=== PATIENT | female | born 1955 | race Caucasian/White ===

== ENCOUNTER → 2020-03-16 | Outpatient (CLI) | payer OTHER | LOC: SJCVC 13:01 | PROVIDERS: ATTEND Internal Medicine | DX: Z01.818 Encounter for other preprocedural examination (principal); R94.31 Abnormal electrocardiogram [ECG] [EKG]; E78.00 Pure hypercholesterolemia, unspecified; M19.90 Unspecified osteoarthritis, unspecified site; Z79.899 Other long term (current) drug therapy; Z87.891 Personal history of nicotine dependence ==

== ENCOUNTER → 2020-04-02 | Outpatient (CLI) | payer OTHER | LOC: SJCVCIMAG 08:05 | PROVIDERS: ATTEND Internal Medicine | DX: Z01.810 Encounter for preprocedural cardiovascular examination (principal); I08.3 Combined rheumatic disorders of mitral, aortic and tricuspid valves; R00.1 Bradycardia, unspecified; R06.00 Dyspnea, unspecified; E78.5 Hyperlipidemia, unspecified; I10 Essential (primary) hypertension; Z87.891 Personal history of nicotine dependence ==

== ENCOUNTER → 2020-05-27 | Outpatient (CLI) | payer OTHER ==
[~2020-05-27] MED LIST: CRESTOR10 MG PO; GLUCOPHAGE500 MG PO; PRESERVISION A1 EAC2 PO; ZYRTEC10 M5 PO
== END ==
LOC: LAB 08:00
PROVIDERS: ATTEND Student in an Organized Health Care Education/Training Program
DX: Z01.812 Encounter for preprocedural laboratory examination (principal); Z20.828 Contact with and (suspected) exposure to other viral communicable diseases

== ENCOUNTER 2020-06-01 07:29 | Inpatient (IN) | payer OTHER ==
[2020-05-27 10:40] LABS: HEMATOCRIT 41.4 % (37.0-47.0); MCH 30.5 pg (26.0-34.0); MCHC 33.7 g/dL (28.0-37.0); MCV 90.7 fL (80.0-100.0); RBC 4.57 mil/uL (4.20-5.00); RDW 12.5 % (10.5-14.5); WBC 7.9 thou/uL (4.0-11.0)
[2020-05-27 10:42] LABS: URINE BILIRUBIN NEGATIVE (Negative); URINE BLOOD NEGATIVE (Negative); URINE CLARITY CLEAR; URINE COLOR YELLOW; URINE GLUCOSE-RANDOM* NEGATIVE (Negative); URINE KETONES NEGATIVE (Negative); URINE NITRITE-REFLEX NEGATIVE (Negative); URINE PROTEIN (DIPSTICK) NEGATIVE (Negative); URINE UROBILINOGEN 0.2 E.U./dl (0.2-1.0)
[2020-05-27 10:44] LABS: URINE LEUKOCYTES-REFLEX 1+ (Negative)
[2020-05-27 10:49] LABS: ALBUMIN 3.9 g/dL (3.4-5.0); CALCIUM 9.4 mg/dL (8.5-10.1); POTASSIUM 4.1 mmol/L (3.5-5.1)
[2020-05-27 10:55] LABS: INR 1.1; PROTIME 11.2 Seconds (9.3-11.4)
[2020-05-27 10:58] LABS: CASTS None Seen /LPF (None Seen); SQUAMOUS 4-10 Moderate /LPF (0-3); URINE WBC-REFLEX 0-5 Rare /HPF (0-5)
[2020-05-27 10:59] LABS: BACTERIA-REFLEX 1-9 Few /HPF (None Seen); CRYSTALS None Seen /LPF (None Seen); URINE RBC None Seen /HPF (0-2)
[2020-05-28 01:06] LABS: GLYCOHEMOGLOBIN (HGB A1C) 6.8 % (4.8-5.6)
[~2020-06-01] VITALS: Ht 154.9 cm; Wt 98.0 kg
[2020-06-01 08:42] VITALS: BP 182/73
[2020-06-01 13:00] VITALS: BP 125/48
[2020-06-01 13:30] VITALS: BP 131/52
[2020-06-01 14:00] VITALS: BP 129/58
--- NOTE | 2020-06-01 15:01 | NUR ---
ASSESSMENT: CM REVIEWED CHART AND SPOKE WITH PATIENT. PT IS S/P L TKR. PT REPORTS THAT SHE LIVES IN A HOUSE WITH HER . PT REPORTS SHE HAS A FEW STEPS TO ENTER BUT CAN ALSO WALK THROUGH HER YARD TO ONLY HAVE ONE STEP TO GET INSIDE. PT STATES ONCE INSIDE SHE HAS ABOUT 6 STEPS WITH HANDRAILS TO THE MAIN LEVEL THAT HER BEDROOM, KITCHEN, AND BATHROOM ARE ON. PT REPORTS SHE HAS A WALKER, CANE, AND CRUTCHES AT HOME. PT REPORTS BEING INDEPENDENT WITH ADLS. PT REPORTS THAT SHE HAS NOT HAD HH IN THE PAST BUT STATES THAT HER PHYSICIAN SENT A REFERRAL TO [facility] SO IF SHE NEEDS IT IS AGREEABLE TO USE THEM. PT/OT IS TO SEE PATIENT AND CM WILL CONTINUE TO FOLLOW TO ASSIST NEEDED.
--- NOTE | 2020-06-01 17:00 | NUR ---
PT ADMITTED TO 453 FROM PACU WITH L KNEE REPLACEMENT. A&OX4. DRSG TO L KNEE C/D/I WITH HEMOVAC IN PLACE, ICE PACK IN PLACE. IV FLUIDS STARTED ORDERED, STARTED IN A CLEAR LIQUID DIET. SCD'S AND JONAH HOSE IN PLACE, CALL LIGHT W/I REACH.
[2020-06-01 20:30] VITALS: BP 139/58
[2020-06-01 20:35] VITALS: BP 139/58
[2020-06-02 05:23] LABS: HEMATOCRIT 29.6 % (37.0-47.0); HEMOGLOBIN 10.1 gm/dL (12.0-15.0); MCH 31.1 pg (26.0-34.0); MCHC 34.3 g/dL (28.0-37.0); MCV 90.7 fL (80.0-100.0); RBC 3.26 mil/uL (4.20-5.00); RDW 12.9 % (10.5-14.5); WBC 12.3 thou/uL (4.0-11.0)
--- NOTE | 2020-06-02 06:15 | NUR ---
Assumed pt care at 1900. A/OX4,VSS.SAMMY/Hemovac in place on left knee. C/o pain with movement.Medicated per EMAR with relief reported. Denies N/V.Fall precautions in place,calls approp for help. IVF infusing via LFA. Will continue to monitor pt.
[2020-06-02 07:51] VITALS: BP 96/43
--- NOTE | 2020-06-02 08:07 | O ---
[facility] [place] [address] OPERATIVE REPORT Name: YOKASTA BERNARD Room #: 443-P ADM IN M.R.#: [id number] Admission: 06/01/20 Attend Phys: Koko Wyman MD Discharge: Date of : 51 Report #: [id number] THIS REPORT FOR: cc: Jessica Kauffman MD, Nora P. MD Clymer, David J. MD ~ CC: Koko Kauffman DATE OF SERVICE: 06/01/2020 PREOPERATIVE DIAGNOSIS: End-stage degenerative arthritis, left knee, with valgus malalignment. POSTOPERATIVE DIAGNOSIS: End-stage degenerative arthritis, left knee, with valgus malalignment. PROCEDURE: Left total knee arthroplasty. SURGEON: Koko Wyman MD INDICATIONS: This heavy, deconditioned, somewhat frail 65-year-old female complains of progressive left knee pain and demonstrates moderate valgus malalignment with slight knee instability. We have elected to go ahead with left total knee arthroplasty. DESCRIPTION OF PROCEDURE: The patient was taken to the operating room where she was placed under general anesthesia. A femoral nerve block was also applied. The left knee and leg were meticulously prepped and draped. A thigh tourniquet was applied and inflated to 300 mmHg. An anterior longitudinal skin incision was made and carried through the medial retinaculum. The patella was reflected laterally. Marked degenerative change in all 3 compartments was noted. The Lund and Nephew knee system was utilized. Intramedullary guides were used on both the femur and the tibia. The femur was cut in 5 degrees of valgus and the tibia cut perpendicular to the long axis of the bone, which corrected nicely the moderate valgus malalignment. The femur was best suited for a size 3 left femoral component. The tibia was also best suited for a size 3 tibial component. Trial reduction was performed and a limited lateral soft tissue release was performed. A size 10 mm polyethylene insert fit nicely and resulted in good correction of the valgus malalignment with satisfactory range of motion and stability. The patellar surface was resected and a 29 mm patellar button fit nicely. Appropriate anchor holes were created and a trial button was placed. The knee was passed through a full range of motion and demonstrated good alignment and satisfactory stability and range of motion. The trial components were then removed. The bony surfaces were thoroughly [address] [address] OPERATIVE REPORT Name: YOKASTA BERNARD Room #: 443-P [facility] IN .R.#: [id number] Admission: 06/01/20 Attend Phys: Koko Wyman MD Discharge: Date of : 51 Report #: [id number] irrigated and dried. The intramedullary canal was blocked with a small bone block on both the femoral and tibial sides. Methyl methacrylate cement was mixed and injected into the porous surface of the tibia. The permanent components were brought up on to the field. The Lund and Nephew size 3 Angela II left tibial baseplate was inserted in appropriate alignment. Excess cement was removed around its margin. A 10 mm Legion high flexion cruciate retaining polyethylene liner was snapped into place. It seated nicely and appeared to be secure. The left cruciate retaining Legion porous femoral component was applied. Some cement was used at the distal aspect as she seems to be moderately osteopenic. This was impacted into position and it seated nicely. Excess cement was removed around its margin. The size 29 Angela II patellar resurfacing component was then positioned using appropriate anchor holes and cement. A patellar clamp was used until the cement had hardened. Once the cement was firm, alignment, range of motion and stability were once again assessed and felt to be satisfactory. A single Hemovac was left in the wound exiting through a separate stab incision. The fascia was closed with multiple #1 Vicryl sutures. The subcutaneous tissues were closed with 0 Monocryl. The skin was closed with skin octavio. A sterile dressing was applied. The patient was awakened and returned to recovery room in good condition. <ELECTRONICALLY SIGNED> By: Koko Wyman MD 06/02/20 0807 1120 1155 Koko Wyman MD /nt
--- NOTE | 2020-06-02 11:29 | NUR ---
DR CARNES HERE TO SEE PATIENT, PT ALERT XS4. SURGICAL DRAIN TAKEN OUT PER ORDERS. FLUIDS DCD. PT HAD AM MEDS AND BLOOD SUGARS MONITERED AND S/S ORDERED. HAS [employer] DRESSING JONAH BLOCK AND ADOLFO SCD'S. PT ASSISTED TO BSC. PT WORKING WITH PT/OT THERAPIES.PT IS PLEASANT AND COOPERATIVE WITH CARE.
[2020-06-02 12:11] VITALS: BP 110/4
--- NOTE | 2020-06-02 15:24 | NUR ---
ON-GOING ASSESSMENT: CM REVIEWED CHART. PER ATTENDING PT MAY DISCHARGE IN THE NEXT 1-2 DAYS. CURRENTLY AWAITING PT/OT EVALS TO ASSIST WITH DISCHARE PLANNING. OT STATING PT CAN LIKELY RETURN HOME BUT AWAITING PT EVAL. [facility] IS FOLLOWING PATIENT. CM WILL CONTINUE TO FOLLOW TO ASSIST NEEDED.
[2020-06-02 16:03] VITALS: BP 139/55
[2020-06-02 19:55] VITALS: BP 151/48
--- NOTE | 2020-06-03 03:10 | NUR ---
PT IS ALERT AND ORIENTED. L KNEE WITH SAMMY DRSG, TEDS AND SCSS IN PLACE. PAIN HAS BEEN IN THE 8-9 RANGE, PERCOCET GIVEN X 2 SO FAR WITH RELIEF. PT REQUIRES ASSIST X1 TO USE THE BSC. SHE IS VOIDING OKAY. AFEBRILE. NO COUGH OR SOA.CALLS APPROPRIATELY. WILL CONTINUE WITH POC TILL EOS.
[2020-06-03 05:40] LABS: HEMATOCRIT 26.9 % (37.0-47.0); HEMOGLOBIN 9.2 gm/dL (12.0-15.0); MCH 31.4 pg (26.0-34.0); MCHC 34.4 g/dL (28.0-37.0); MCV 91.5 fL (80.0-100.0); RBC 2.94 mil/uL (4.20-5.00); RDW 13.4 % (10.5-14.5); WBC 11.2 thou/uL (4.0-11.0)
[2020-06-03 08:00] VITALS: BP 131/50
[2020-06-03] MEDS ORDERED: XARELTO10 MG PO (13:46)
[2020-06-03] MEDS ORDERED: NORCO 10-325 T1 EACH PO (13:46)
--- NOTE | 2020-06-03 14:33 | NUR ---
ON-GOING ASSESSMENT: CM REVIEWED CHART. PT CONTINUES TO WORK WITH THERAPIES. PLAN IS FOR POSSIBLE DISCHARGE HOME TOMORROW. CM WILL CONTINUE TO FOLLOW. [facility] CAN ACCEPT PATIENT FOR HH IF NEEDED AT DISCHARGE. CM NOTIFIED [facility] THAT PT IS NOT DISCHARGE TODAY.
[2020-06-03 16:25] VITALS: BP 128/75
[2020-06-03 16:32] VITALS: BP 128/57
[2020-06-03 19:12] VITALS: BP 108/45
--- NOTE | 2020-06-03 19:14 | NUR ---
PT IS AOX4, VSS, PAIN CONTROLLED WITH ORAL ANALGESIC. PT IS UP WITH STANDBY ASSIST & WALKER. PT CALLS APPROPRIATELY, FALL PRECAUTIONS IN PLACE. WILL CONTINUE TO MONITOR FOR SAFETY.
--- NOTE | 2020-06-04 03:20 | NUR ---
NO NEW CONCERNS. PT ABLE TO TRANSFER WITH SBA X1. PAIN MANAGED WITH ORAL MEDS. DENIES ANY OTHER SYMPTOMS. LAXATIVES GIVEN ( TIMED AND PRN). SO FAR PT IS PASSING FLATUS. LEFT KNEE WITH SAMMY DRSG, LOOKS GOOD. NO OTHER CONCERNS.FALL PREC IN PLACE, CALL LIGHT WITHIN REACH.
[2020-06-04 03:39] VITALS: BP 126/56
[2020-06-04 05:25] LABS: HEMATOCRIT 26.9 % (37.0-47.0); HEMOGLOBIN 9.1 gm/dL (12.0-15.0); MCH 31.2 pg (26.0-34.0); MCHC 33.8 g/dL (28.0-37.0); MCV 92.2 fL (80.0-100.0); RBC 2.92 mil/uL (4.20-5.00); WBC 9.1 thou/uL (4.0-11.0)
[2020-06-04 08:23] VITALS: BP 121/48
--- NOTE | 2020-06-04 12:08 | D ---
[facility] [place] [address] DISCHARGE SUMMARY Name: YOKASTA BERNARD Room #: 443-P ADM IN M.R.#: [id number] Admission: 06/01/20 Attend Phys: Koko Wyman MD Discharge: Date of : 51 Report #: [id number] THIS REPORT FOR: cc: Jessica Kauffman MD, Nora P. MD Clymer, David J. MD ~ THIS REPORT FOR: //name// CC: Koko Kauffman DATE OF SERVICE: 06/04/2020 FINAL DIAGNOSIS: End-stage degenerative arthritis, left knee. OPERATIONS AND PROCEDURES: Left total knee arthroplasty. HISTORY OF PRESENT ILLNESS: This frail, but independent 65-year-old female complains of progressive left knee pain. Clinical exam and x-rays reveal significant degenerative change with moderate valgus malalignment. We have discussed treatment options and elected to go ahead with total knee replacement. HOSPITAL COURSE: The patient was admitted and taken to the operating room on 06/01/2020. She underwent left total knee replacement, which she tolerated nicely. Postoperatively, she made slow progress, given her age and frail state. She was able to advance gradually with physical therapy and now seems safe and functional using a walker with limited assistance. She was able to resume a regular diet and resume her routine medications. DISCHARGE MEDICATIONS: Include Xarelto 10 mg daily, hydrocodone 10 mg one every 6 hours p.r.n. for pain, metformin 500 mg b.i.d., Crestor 10 mg daily, Zyrtec 10 mg daily. She will continue gentle activity for range of motion and strengthening at home doing independent exercise. She will call if there are any problems or questions. I will plan to see her back in my office next week for her first routine followup visit and then the following week for suture removal. <ELECTRONICALLY SIGNED> By: Koko Wyman MD 06/04/20 1208 1136 1156 Koko Wyman MD /nt
[2020-06-04 12:46] VITALS: BP 121/48
--- NOTE | 2020-06-04 15:08 | NUR ---
PT IS AOX4, VSS, PAIN IN BACK CONTROLLED WITH ORAL ANALGESIC. PT UP WITH 1 PERSON ASSISTANCE. PT HAS GOOD APPETITE, NO N/V NOTED. DISCHARGE INSTRUCTIONS RECEIVED AND PT REPORTS UNDERSTANDING. IV D/C'D, PT WENT HOME IN CAR WITH FAMILY MEMBER.
--- NOTE | 2020-06-04 15:24 | NUR ---
ON-GOING ASSESSMENT: CM REVIEWED CHART. ATTENDING DISCHARGED PATIENT HOME WITH NO NEEDS. PT HOWEVER IS REQUESTING HOME HEALTH CARE AND SHE REPORTS ATTENDING ALREADY SENT REFERRAL TO [facility] PRIOR TO ADMISSION AND SHE HAD BEEN SPEAKING WITH THEM. CM SPOKE WITH LIASON FROM [facility] WHO REPORTS THAT THEY HAD BEEN FOLLOWING PATIENT. CM DISCUSSED THAT NO HOME HEALTH ORDERS WERE WRITTEN. CM ATTEMPTED TO CONTACT DY. CARNES AND AWAITING ORDERS AT THIS TIME. [facility] WAS ALSO GOING TO REACH OUT TO HIM.
== END 2020-06-04 14:33 | disposition home or self-care (01) | DRG 470 ==
LOC: 4S 07:29 → TBA 07:29 → PRE 10:01 → 4S 12:29 → PRE 13:23 → 4S 06-04 14:33
PROVIDERS: ADMIT Orthopaedic Surgery; ATTEND Orthopaedic Surgery
PROC: 0SRD0J9 Replacement of Left Knee Joint with Synthetic Substitute, Cemented, Open Approach (ICD-10-PCS; principal; 2020-06-01)
DX: M17.12 Unilateral primary osteoarthritis, left knee (principal); Z68.41 Body mass index [BMI] 40.0-44.9, adult; E78.5 Hyperlipidemia, unspecified; E11.9 Type 2 diabetes mellitus without complications; J44.9 Chronic obstructive pulmonary disease, unspecified; E66.9 Obesity, unspecified; M22.42 Chondromalacia patellae, left knee; Z88.7 Allergy status to serum and vaccine; Z79.899 Other long term (current) drug therapy; Z91.02 Food additives allergy status; Z87.891 Personal history of nicotine dependence
CPT/HCPCS: 10102; 50010; 50101; 50415; 50954; 51130; 51225; 51412; 53364; 56525; 57095; 57103; 57104; 57180; 62110; 62900; 70005

== ENCOUNTER → 2020-06-23 | Outpatient (CLI) | payer OTHER ==
[~2020-06-23] MED LIST changes: +NORCO 10-325 T1 EACH PO; +XARELTO10 MG PO
== END ==
LOC: CAT 10:56
PROVIDERS: ATTEND Family Medicine
DX: Z12.2 Encounter for screening for malignant neoplasm of respiratory organs (principal); I25.10 Atherosclerotic heart disease of native coronary artery without angina pectoris; J84.10 Pulmonary fibrosis, unspecified; D73.89 Other diseases of spleen; R91.8 Other nonspecific abnormal finding of lung field; I70.0 Atherosclerosis of aorta; Z87.891 Personal history of nicotine dependence

== ENCOUNTER → 2020-12-31 | Outpatient (CLI) | payer OTHER, MEDICARE | LOC: CAT 09:57 | PROVIDERS: ATTEND Family Medicine | DX: R91.8 Other nonspecific abnormal finding of lung field (principal); I25.10 Atherosclerotic heart disease of native coronary artery without angina pectoris; J84.10 Pulmonary fibrosis, unspecified; J98.4 Other disorders of lung; M47.814 Spondylosis without myelopathy or radiculopathy, thoracic region; M46.04 Spinal enthesopathy, thoracic region; Z87.891 Personal history of nicotine dependence ==

== ENCOUNTER 2021-09-08 11:07 | Inpatient (IN) | payer OTHER, MEDICARE ==
[~2021-09-08] VITALS: Ht 165.1 cm; Wt 102.6 kg
[2021-09-08 11:17] VITALS: BP 75/44; BP 82/40
[2021-09-08 12:28] LABS: HEMATOCRIT 39.2 % (37.0-47.0); HEMOGLOBIN 12.8 gm/dL (12.0-15.0); MCH 29.5 pg (26.0-34.0); MCHC 32.6 g/dL (28.0-37.0); MCV 90.5 fL (80.0-100.0); PLATELET COUNT 248 thou/uL (150-400); RBC 4.33 mil/uL (4.20-5.00); RDW 13.5 % (10.5-14.5); WBC 28.3 thou/uL (4.0-11.0)
[2021-09-08 12:47] LABS: CALCIUM 8.8 mg/dL (8.5-10.1); CREATININE 2.2 mg/dL (0.6-1.0); POTASSIUM 4.6 mmol/L (3.5-5.1)
[2021-09-08 12:52] LABS: ALBUMIN 2.2 g/dL (3.4-5.0); TOTAL BILIRUBIN 0.6 mg/dL (0.2-1.0); TOTAL PROTEIN 6.3 g/dL (6.4-8.2)
[2021-09-08 14:40] LABS: URINE BILIRUBIN NEGATIVE (Negative); URINE BLOOD NEGATIVE (Negative); URINE CLARITY SL CLOUDY; URINE COLOR YELLOW; URINE GLUCOSE-RANDOM* NEGATIVE (Negative); URINE KETONES TRACE (Negative); URINE LEUKOCYTES-REFLEX TRACE (Negative); URINE NITRITE-REFLEX NEGATIVE (Negative); URINE PROTEIN (DIPSTICK) NEGATIVE (Negative); URINE SPECIFIC GRAVITY 1.025 (1.005-1.035); URINE UROBILINOGEN 0.2 E.U./dl (0.2-1.0)
[2021-09-08 15:36] LABS: ABSOLUTE NEUTROPHILS 26.6 thou/uL (1.4-8.2); PLATELET ESTIMATE NORMAL
[2021-09-08] MEDS ORDERED: LISINOPRIL10 MG PO ×2 (18:29)
[2021-09-08] MEDS ORDERED: FISH OIL 1,0001 EAC9 PO ×2 (18:29)
[2021-09-08] MEDS ORDERED: GLIPIZIDE XL5 MG PO ×2 (18:29)
[2021-09-08] MEDS ORDERED: TRULICITY1.5 MG/0.5 SUBQ ×2 (18:29)
[2021-09-08 22:16] VITALS: BP 109/52
[2021-09-08 22:17] VITALS: BP 139/54
[2021-09-08 23:05] LABS: INR 1.32; PROTIME 14.2 Seconds (10.5-12.1)
[2021-09-09 03:30] VITALS: BP 111/42
[2021-09-09 05:43] LABS: ABSOLUTE NEUTROPHILS 15.2 thou/uL (1.4-8.2); BASOPHILS 0.2 % (0.0-2.0); EOSINOPHILS 4.4 % (0.0-3.0); HEMATOCRIT 32.5 % (37.0-47.0); MCH 29.5 pg (26.0-34.0); MCHC 32.8 g/dL (28.0-37.0); MONOCYTES 5.7 % (1.0-8.0); PLATELET COUNT 207 thou/uL (150-400); POLYS 83.7 % (36.0-66.0); RBC 3.61 mil/uL (4.20-5.00); RDW 13.4 % (10.5-14.5); WBC 18.2 thou/uL (4.0-11.0)
[2021-09-09 05:47] LABS: HEMOGLOBIN 10.6 gm/dL (12.0-15.0)
--- NOTE | 2021-09-09 06:04 | NUR ---
Arrived from ER around 2214. Baseline coags added to labs drawn in ER prior to starting heparin gtt. Heparin bolus administered in ER.No bleeding noted. SB when asleep the SR when awake. Pt. verbalized being short of breath when she first came then it got better except she still does get short of breath with exertion. Maintaining O2 sat in the mid to upper 90's.She has been afebrile. Abdominal folds /pannus cleansed , dried and applied nystatin powder then interdry. Photo taken then placed in chart. Another IV placed on left FA for IV ABT. She slept fair during the night. Voiding per bedpan with periods of incontinence.
[2021-09-09 06:39] LABS: TOTAL PROTEIN 4.9 g/dL (6.4-8.2)
[2021-09-09 06:59] LABS: ALBUMIN 1.8 g/dL (3.4-5.0); CALCIUM 7.9 mg/dL (8.5-10.1); CREATININE 1.7 mg/dL (0.6-1.0); TOTAL BILIRUBIN 0.4 mg/dL (0.2-1.0)
[2021-09-09 07:00] LABS: POTASSIUM 3.6 mmol/L (3.5-5.1)
[2021-09-09 07:10] VITALS: BP 111/54
--- NOTE | 2021-09-09 08:34 | EKG ---
[address] [place] [address] ELECTROCARDIOGRAM REPORT Name: YOKASTA BERNARD Room #: 211-P ADM IN M.R.#: [id number] Admission: 09/08/21 Attend Phys: Michelle Salvador MD Discharge: Date of : 51 Report #: [id number] [facility] ED Test Date: 2021-09-08 Test Time: 11:20:56 Pat Name: YOKASTA BERNARD Department: Room: 211 Gender: F Air Battle Manager: HALI : 1955 Requested By: Kenzie Steel Order Number: [id number] MD: Merlin Bird Measurements Intervals [place] Rate: 66 P: 20 NH: 161 QRS: -26 QRSD: 101 T: 34 QT: 422 QTc: 443 Interpretive Statements Sinus rhythm Multiple ventricular premature complexes Inferior infarct, old Poor R wave progression No previous ECG available for comparison Electronically Signed On 09-09-2021 8:33:55 ASSISTANT AUDITOR by Merlin Bird [email or web address] <ELECTRONICALLY SIGNED> By: Merlin Bird MD, [facility] 09/09/21 0833 1120 1120 Merlin Bird MD, FACC /EPI
[2021-09-09 11:12] VITALS: BP 109/49
[2021-09-09 11:20] VITALS: BP 104/52
--- NOTE | 2021-09-09 11:23 | 2DMMODE ---
[facility] [place] [address] 2 D/M-MODE ECHOCARDIOGRAM Name: YOKASTA BERNARD Room #: 211-P ADM IN M.R.#: [id number] Admission: 09/08/21 Attend Phys: Michelle Salvador MD Discharge: Date of : 51 Report #: [id number] THIS REPORT FOR: cc: Jessica Kauffman MD, Nora P. MD Park, Jin S. MD ~ APPROVED REPORT Study performed: 09/09/2021 09:41:01 EXAM: Comprehensive 2D, Doppler, and color-flow Echocardiogram Patient Location: Bedside Room #: 211 Status: routine BSA: 2.08 HR: 56 bpm BP: 111/54 mmHg Rhythm: Bradycardia Other Information Study Quality: Adequate Indications Diabetes Chest Pain Hypertension/HDD 2D Dimensions RVDd: 33.33 mm IVSd: 9.22 (7-11mm) LVOT Diam: 20.04 (18-24mm) LVDd: 53.22 mm PWd: 8.99 (7-11mm) Ascending Ao: 36.38 (22-36mm) LVDs: 31.03 (25-40mm) Left Atrium: 36.75 (27-40mm) Aortic Root: 29.82 mm IVC: 18.00 mm Volumes Left Atrial Volume (Systole) Single Plane 4CH: 81.36 mL Single Plane 2CH: 66.06 mL LA ESV Index: 41.00 mL/m2 Aortic Valve AoV Peak Danilo.: 3.12 m/s AO Peak Gr.: 38.85 mmHg LVOT Max P.78 mmHg [facility] [address] [place] [address] 2 D/M-MODE ECHOCARDIOGRAM Name: YOKASTA BERNARD Room #: 211-P [facility] IN [facility].#: [id number] Admission: 09/08/21 Attend Phys: Yahaira Ruiz Discharge: Date of : 51 Report #: [id number] Mean Gr.: 21.83 mmHg LVOT Mean P.61 mmHg AO V2 Mean: 2.15 m/s LVOT Max V: 1.36 m/s AO V2 VTI: 75.18 cm LVOT Mean V: 0.86 m/s DARWIN (VTI): 1.17 cm2 LVOT V1 VTI: 27.90 cm DARWIN Vmax: 1.37 cm2 SV (LVOT): 87.91 mL Mitral Valve E/A Ratio: 0.8 MV Decel. Time: 269.58 ms MV E Max Danilo.: 1.00 m/s MV A Danilo.: 1.26 m/s MV PHT: 78.18 ms IVRT: 110.73 ms Pulmonary Valve PV Peak Danilo.: 1.27 m/s PV Peak Gr.: 6.44 mmHg Pulmonary Vein P Vein S: 0.70 m/s P Vein A: 0.34 m/s P Vein D: 0.59 m/s P Vein A Dur.: 106.1 msec P Vein S/D Ratio: 1.19 Tricuspid Valve TR Peak Danilo.: 2.84 m/s TR Peak Gr.: 32.37 mmHg PA Pressure: 37.00 mmHg Left Ventricle The left ventricle is normal size. There is normal LV segmental wall motion. There is normal left ventricular wall thickness. The left ventricular systolic function is normal. The left ventricular ejection fraction is within the normal range. LVEF is 65%. Grade I - abnormal relaxation pattern. Right Ventricle The right ventricle is normal size. The right ventricular systolic function is normal. Atria Left atrium is dilated. Right atrium is at the upper limits of normal. Aortic Valve The aortic valve is normal in structure. Aortic valve is calcified. Trace to mild aortic regurgitation. There [place] [address] 2 D/M-MODE ECHOCARDIOGRAM Name: YOKASTA BERNARD Room #: 211-P [facility] IN [facility]#: [id number] Admission: 09/08/21 Attend Phys: Yahaira Ruiz Discharge: Date of : 51 Report #: [id number] stenosis. Mitral Valve The mitral valve is normal in structure. Mild mitral regurgitation. No evidence of mitral valve stenosis. Tricuspid Valve The tricuspid valve is normal in structure. There is trace to mild tricuspid regurgitation. Estimated PAP 35 mmHg. There is mild pulmonary hypertension. Pulmonic Valve The pulmonary valve is normal in structure. There is no pulmonic valvular regurgitation. Great Vessels The aortic root is normal in size. IVC is normal in size and collapses >50% with inspiration. Pericardium There is no pericardial effusion. <Conclusion> The left ventricle is normal size. There is normal left ventricular wall thickness. The left ventricular systolic function is normal. Grade I - abnormal relaxation pattern. The right ventricle is normal size. Left atrium is dilated. There is mild valvular aortic stenosis. Mild mitral regurgitation. There is trace to mild tricuspid regurgitation. Estimated PAP 35 mmHg. <ELECTRONICALLY SIGNED> By: Zachary Rogel MD 09/09/211121 21 21 Zachary Rogel MD /INF
--- NOTE | 2021-09-09 12:08 | NUR ---
PT RESTING IN BED AT THIS TIME. PT FEELS DROWSY TODAY. PTS BLOOD PRESSURE SLIGHTLY HYPOTENSIVE; INFORMED DR. CLEANING REGARDING PATIENT'S BLOOD PRESSURE; NEW ORDERS RECEIVED AND ADMINISTERED. PT DENIES ANY SOA,CHEST PAIN, DIZZINESS, OR NAUSEA AND VOMITING. D/C HEPARIN GTT PER DR. CLEANING'S ORDERS. PT DENIES ANY NEEDS AT THIS TIME. ASSESSMENTS CHARTED. WILL CONTINUE TO MONITOR. FALL PRECAUTIONS IN PLACE AND CALL LIGHT WITHIN REACH.
[2021-09-09 15:10] VITALS: BP 114/39
--- NOTE | 2021-09-09 16:28 | NUR ---
Met with patient and at bedside. patient transferred to [facility] from [facility]. Patient admits with CP with planned CABG in am. Patient resides with in independent home. All needs on one level. Patient independent with adls officer captain. he was in process of building a deck on home. Patient cont to drive. Discussed dc planning. Discussed with dme coverage. Casemgt following
--- NOTE | 2021-09-09 17:01 | NUR ---
met with patient who admits with fatigue/weakness. Patient resides in independent home with son and dtr-in-law. She reports she has 6 steps with rail to enter then all needs on one level. Patient reports she has a cane but does not use daily. PCP Dr Kauffman. Patient reports if need for home health care she reports no preference for care. She reports feeling better today.
[2021-09-09 20:01] VITALS: BP 133/53
[2021-09-10 04:48] VITALS: BP 106/52
--- NOTE | 2021-09-10 05:41 | NUR ---
PT UP TO BSC WITH SBA, NO C/O PAIN, VSS, IV FLUIDS AND ANTIBX INFUSING IN L ARM IV SITES, REPOSITIONED NEEDED, WILL CON'T TO MONITOR PER PPOC.
[2021-09-10 07:10] VITALS: BP 128/41
[2021-09-10 09:08] LABS: HEMATOCRIT 30.2 % (37.0-47.0); HEMOGLOBIN 9.8 gm/dL (12.0-15.0); MCH 29.8 pg (26.0-34.0); MCHC 32.5 g/dL (28.0-37.0); MCV 91.7 fL (80.0-100.0); RBC 3.29 mil/uL (4.20-5.00); RDW 13.9 % (10.5-14.5); WBC 10.1 thou/uL (4.0-11.0)
[2021-09-10 09:16] LABS: CALCIUM 8.3 mg/dL (8.5-10.1); CREATININE 1.6 mg/dL (0.6-1.0); POTASSIUM 3.9 mmol/L (3.5-5.1)
[2021-09-10 11:20] VITALS: BP 101/41
--- NOTE | 2021-09-10 11:51 | NUR ---
TOOK OVER CARE OF THIS PATIENT AT 0700. PT RESTING IN BED; DENIES ANY NEEDS AT THIS TIME. PT RESTING COMFORTABLY. AMBULATED WITH PHYSICAL THERAPY TODAY. PT DENIES ANY PAIN, SOA, DIZZINESS, NAUSEA OR VOMITING. FALL PRECAUTIONS IN PLACE AND CALL LIGHT WITHIN REACH.
[2021-09-10] MEDS ORDERED: CEFDINIR300 MG PO ×2 (13:57)
[2021-09-10] MEDS ORDERED: DOXYCYCLINE HY100 M4 PO ×2 (13:57)
[2021-09-10] MEDS ORDERED: NYSTATIN 100,0015 G1 TOP ×2 (14:04)
[2021-09-10 15:04] VITALS: BP 101/41
--- NOTE | 2021-09-10 15:04 | NUR ---
PT GOING TO BE DISCHARGING TODAY. PT VERY ANXIOUS ABOUT THE TIME SHE WILL BE DISCHARGED. EDUCATED PT THAT IT DOES TAKE TIME FOR SOCIAL WORK TO COORDINATE HOME HEALTHCARE WELL GETTING DISCHARGE INSTRUCTIONS. PTS SON WILL BE AVAILABLE DURING TEACHING. AGREEABLE TO DISCHARGE PLAN.
[2021-09-10 15:07] VITALS: BP 101/41
--- NOTE | 2021-09-10 16:25 | NUR ---
I have reviewed the documentation by EMELY ASHFORD from 09/10/21 to 09/10/21 and I concur with it. GUSTAVO FLORES
== END 2021-09-10 15:51 | disposition home health service (06) | DRG 871 ==
LOC: ER 11:07 → EROBS 15:17 → 2N 15:17
PROVIDERS: Physician Assistant; ADMIT Hospitalist; ATTEND Hospitalist
DX: A41.9 Sepsis, unspecified organism (principal); E43 Unspecified severe protein-calorie malnutrition; N17.0 Acute kidney failure with tubular necrosis; B37.89 Other sites of candidiasis; L30.8 Other specified dermatitis; Z20.822 Contact with and (suspected) exposure to COVID-19; E11.9 Type 2 diabetes mellitus without complications; J45.909 Unspecified asthma, uncomplicated; E78.5 Hyperlipidemia, unspecified; E66.01 Morbid (severe) obesity due to excess calories; H91.91 Unspecified hearing loss, right ear; R65.20 Severe sepsis without septic shock; M79.3 Panniculitis, unspecified; E78.00 Pure hypercholesterolemia, unspecified; E66.9 Obesity, unspecified; I35.0 Nonrheumatic aortic (valve) stenosis; M17.12 Unilateral primary osteoarthritis, left knee; R53.81 Other malaise; D64.89 Other specified anemias; Z98.42 Cataract extraction status, left eye; Z98.41 Cataract extraction status, right eye; Z68.37 Body mass index [BMI] 37.0-37.9, adult; Z88.8 Allergy status to other drugs, medicaments and biological substances; Z87.891 Personal history of nicotine dependence
CPT/HCPCS: 10081

== ENCOUNTER → 2021-09-27 | Outpatient (CLI) | payer OTHER, MEDICARE ==
[~2021-09-27] MED LIST changes: +CEFDINIR300 MG PO; +DOXYCYCLINE HY100 M4 PO; +FISH OIL 1,0001 EAC9 PO; +GLIPIZIDE XL5 MG PO; +LISINOPRIL10 MG PO; +NYSTATIN 100,0015 G1 TOP; +TRULICITY1.5 MG/0.5 SUBQ
== END ==
LOC: SJCVC 12:45
PROVIDERS: ATTEND Internal Medicine
DX: I10 Essential (primary) hypertension (principal); R06.00 Dyspnea, unspecified; E78.5 Hyperlipidemia, unspecified; M19.90 Unspecified osteoarthritis, unspecified site; R73.9 Hyperglycemia, unspecified; H35.30 Unspecified macular degeneration; Z87.891 Personal history of nicotine dependence; Z79.899 Other long term (current) drug therapy; Z88.8 Allergy status to other drugs, medicaments and biological substances

== ENCOUNTER 2021-10-05 11:00 | Emergency (ER) | payer OTHER, MEDICARE ==
[~2021-10-05] VITALS: Ht 154.9 cm; Wt 92.5 kg
[2021-10-05 13:31] VITALS: BP 150/69
[2021-10-05 15:28] LABS: ABSOLUTE NEUTROPHILS 4.1 thou/uL (1.4-8.2); BASOPHILS 0.9 % (0.0-2.0); EOSINOPHILS 1.4 % (0.0-3.0); HEMATOCRIT 39.1 % (37.0-47.0); HEMOGLOBIN 12.6 gm/dL (12.0-15.0); LYMPHOCYTES 25.8 % (24.0-44.0); MCH 29.9 pg (26.0-34.0); MCHC 32.2 g/dL (28.0-37.0); MCV 92.8 fL (80.0-100.0); MONOCYTES 15.2 % (1.0-8.0); PLATELET COUNT 183 thou/uL (150-400); POLYS 56.7 % (36.0-66.0); RBC 4.21 mil/uL (4.20-5.00); WBC 7.2 thou/uL (4.0-11.0)
[2021-10-05 15:34] LABS: CALCIUM 9.4 mg/dL (8.5-10.1); CREATININE 1.1 mg/dL (0.6-1.0); POTASSIUM 3.8 mmol/L (3.5-5.1)
[2021-10-05 15:40] LABS: ALBUMIN 3.1 g/dL (3.4-5.0); TOTAL BILIRUBIN 0.5 mg/dL (0.2-1.0); TOTAL PROTEIN 7.5 g/dL (6.4-8.2)
[2021-10-05 17:23] LABS: URINE BILIRUBIN NEGATIVE (Negative); URINE BLOOD NEGATIVE (Negative); URINE CLARITY CLEAR; URINE COLOR YELLOW; URINE GLUCOSE-RANDOM* NEGATIVE (Negative); URINE KETONES NEGATIVE (Negative); URINE NITRITE-REFLEX NEGATIVE (Negative); URINE PROTEIN (DIPSTICK) NEGATIVE (Negative); URINE UROBILINOGEN 0.2 E.U./dl (0.2-1.0)
[2021-10-05 17:29] LABS: URINE LEUKOCYTES-REFLEX 1+ (Negative)
[2021-10-05 17:48] LABS: BACTERIA-REFLEX 1-9 Few /HPF (None Seen); CASTS None Seen /LPF (None Seen); CRYSTALS None Seen /LPF (None Seen); SQUAMOUS 4-10 Moderate /LPF (0-3); URINE RBC 1-2 Rare /HPF (NONE SEEN); URINE WBC-REFLEX 6-15 Few /HPF (0-5)
[2021-10-05] MEDS ORDERED: NORCO7.5 PO (18:05)
[2021-10-05] MEDS ORDERED: ZOFRAN ODT4 MG PO (18:11)
[2021-10-05] MEDS ORDERED: VOLTAREN50 MG PO (18:11)
[2021-10-05] MEDS ORDERED: BACTRIM DS TAB1 EACH PO (18:15)
[2021-10-07] MEDS ORDERED: LISINOPRIL10 MG PO (14:59)
[2021-10-07] MEDS ORDERED: VOLTAREN50 MG PO (16:08)
== END 2021-10-05 19:09 | disposition home or self-care (01) ==
LOC: ER 11:00
PROVIDERS: Nurse Practitioner
DX: K80.20 Calculus of gallbladder without cholecystitis without obstruction (principal); N39.0 Urinary tract infection, site not specified; E78.5 Hyperlipidemia, unspecified; J45.909 Unspecified asthma, uncomplicated; E66.01 Morbid (severe) obesity due to excess calories; Z98.51 Tubal ligation status; Z98.890 Other specified postprocedural states; Z79.899 Other long term (current) drug therapy; Z88.7 Allergy status to serum and vaccine; Z91.02 Food additives allergy status

== ENCOUNTER 2021-10-08 09:02 | Day surgery (SDC) | payer OTHER, MEDICARE ==
[~2021-10-08] VITALS: Ht 154.9 cm; Wt 92.1 kg
[~2021-10-08 09:02] MED LIST changes: +BACTRIM DS TAB1 EACH PO; +NORCO7.5 PO; +VOLTAREN50 MG PO; +ZOFRAN ODT4 MG PO
== END 2021-10-08 15:42 | disposition home or self-care (01) ==
LOC: OR 09:02 → TBA 09:09 → OR 13:37
PROVIDERS: ATTEND Surgery
DX: K80.20 Calculus of gallbladder without cholecystitis without obstruction (principal); Z53.8 Procedure and treatment not carried out for other reasons; Z20.822 Contact with and (suspected) exposure to COVID-19; I10 Essential (primary) hypertension; E11.9 Type 2 diabetes mellitus without complications; E78.5 Hyperlipidemia, unspecified; M19.90 Unspecified osteoarthritis, unspecified site; Z98.890 Other specified postprocedural states; Z79.899 Other long term (current) drug therapy; Z87.891 Personal history of nicotine dependence; Z98.51 Tubal ligation status

== ENCOUNTER 2021-10-20 10:53 | Observation (INO) | payer OTHER, MEDICARE ==
[~2021-10-20] VITALS: Ht 154.9 cm; Wt 92.5 kg
[2021-10-20 11:44] LABS: HEMATOCRIT 39.6 % (37.0-47.0); HEMOGLOBIN 12.7 gm/dL (12.0-15.0)
[2021-10-20 12:04] VITALS: BP 118/41
[2021-10-20 19:39] VITALS: BP 115/53
--- NOTE | 2021-10-20 22:17 | NUR ---
PT ADMITTED TO THE UNIT THIS SHIFT. ROOM AIR. VSS. C/O ABDOMINAL PAIN. PRN PAIN MEDICATION GIVEN DIRECTED. ALL SCHEDULED MEDICATIONS GIVEN DIRECTED. FALL PRECUATIONS IN PLACE, CALL LIGHT IS WITHIN REACH. ADMISSION COMPLETED. PT HAS BEEN EDUCATED ON USE OF CALL LIGHT AND BED CONTROLS. PT CALLS OUT APPROPRIATELY FOR ASSISTANCE.
[2021-10-21 05:05] LABS: HEMATOCRIT 35.6 % (37.0-47.0); HEMOGLOBIN 11.6 gm/dL (12.0-15.0); MCH 30.5 pg (26.0-34.0); MCHC 32.7 g/dL (28.0-37.0); MCV 93.3 fL (80.0-100.0); RBC 3.82 mil/uL (4.20-5.00); RDW 13.7 % (10.5-14.5); WBC 7.1 thou/uL (4.0-11.0)
[2021-10-21 05:23] LABS: CALCIUM 8.9 mg/dL (8.5-10.1); CREATININE 1.4 mg/dL (0.6-1.0)
[2021-10-21 05:50] LABS: POTASSIUM 5.9 mmol/L (3.5-5.1)
--- NOTE | 2021-10-21 07:54 | O ---
[facility] [place] [address] OPERATIVE REPORT Name: YOKASTA BERNARD Room #: 436-[facility] M.R.#: [id number] Admission: 10/20/21 Attend Phys: Sherman Bai MD Discharge: Date of : 51 Report #: [id number] THIS REPORT FOR: cc: Jessica Kauffman MD,Jessica Bai,Sherman Romero MD ~ cc: Jessica Kauffman MD DATE OF SERVICE: 10/20/2021 PREOPERATIVE DIAGNOSES: Cholecystitis with cholelithiasis and sludge in the gallbladder. POSTOPERATIVE DIAGNOSES: Cholecystitis with cholelithiasis and sludge in the gallbladder with two stones impacted in the distal cystic duct near the gallbladder cystic duct junction. SURGEON: Sherman Bai MD PROCEDURE PERFORMED: Laparoscopic cholecystectomy with cholangiogram. ESTIMATED BLOOD LOSS: 30 mL. COMPLICATIONS: None. ANESTHESIA: General anesthesia. HISTORY: The patient is a 66-year-old who went to the Emergency Room on 10/05/2021. She had right upper quadrant pain. Ultrasound showed she had multiple stones and sludge. The patient initially was recommended to undergo surgery on 10/08/2021. She came in and her COVID test was positive. She did not have any COVID symptoms. She had two more bouts of pain this week and the patient was felt to require surgery on an urgent basis and she has passed the 10-day window. After discussing with anesthesia, she was okay to undergo surgery per their criteria. PROCEDURE NOTE: With the patient under general anesthesia, abdomen was prepped and draped in sterile fashion. The patient received 2 grams Ancef IV antibiotics. Abdomen was prepped and draped in sterile fashion. Timeout was performed. A 0.25% Marcaine was used to anesthetize the skin above the umbilicus. A transverse incision was made above the umbilicus. The fascia was identified and tissue was dissected down to the fascia. Fascia was grabbed with hemostat. Fascia was then opened under visualization. The 0 Vicryl suture was placed on the edges of the fascia for retraction. Veress needle was then placed through the peritoneum. Abdominal cavity was insufflated with CO2 easily. After creating pneumoperitoneum pressure of 15, an 11-mm trocar was placed [address] [address] OPERATIVE REPORT Name: YOKASTA BERNARD Room #: [address] [place] [address] Honorio Zheng#: [id number] Admission: 10/20/21 Attend Phys: Sherman Bai MD Discharge: Date of : 51 Report #: [id number] through the posterior fascia and peritoneum under visualization. No harm to the underlying tissue was visualized. The patient did have adhesions in the right upper quadrant just proximal to the hepatic flexure. I do not know if this is gallbladder related. These adhesions were taken down using cautery and blunt dissection with a 5-mm port placed in the epigastrium. Once this was freed, two additional 5-mm trocars were placed in right upper quadrant. Gallbladder was identified. Gallbladder is decompressed looking and it was densely covered by adhesions. The adhesions were divided and brought down off the gallbladder, but the gallbladder being fairly decompressed, it was hard initially to find where the gallbladder edge was. There was some bleeding from taking down the adhesions. Hemoclips were applied to the vessel that was bleeding from the fatty adhesions. The proximal gallbladder was then identified. Due to the amount of scar tissue with dissection and the fairly thin gallbladder, an opening was made in the gallbladder. Dark greenish thick bile was noted. Multiple stones that are 4-5 mm were released and then the stones were set aside over the omentum. These were then suctioned out with a larger suction device. The 5-mm epigastric port was changed to 11 mm to allow the suction to be placed and able to suction the stones out. The patient had a lot of stones that were removed this way. The patient's gallbladder was quite thin and floppy, and the gallbladder was then followed down to the end of the gallbladder. Cystic duct was then dissected free. Care was taken not to be too forceful in this area because of the nature of the patient's gallbladder was quite frail and thin. I could feel two stones what looked like in the cystic duct just below the gallbladder junction. It is not well demarcated where the junction was located. I was able to isolate the cystic duct below these palpable stone. A clip was placed in the distal cystic duct and an opening was made just proximal to the clip. Cholangiogram catheter was placed without difficulty. The tip of the catheter was placed in the cystic duct and held with a clip. Dye was placed and there was no extravasation. The cholangiogram catheter was identified in the cystic duct. There was a more proximal part of the cystic duct, which was intact. The common duct filled out well, slightly dilated. Dye was also seen flowing into the duodenum freely. No defect in the common duct was seen. The cholangiogram catheter was then removed. The proximal cystic duct was then clipped x2. The cystic artery was identified adjacent to this and the medial vessel was fairly small, this was clipped x 2 proximally, one distally and then divided. Gallbladder was then freed towards the lateral direction and there is a slightly larger cystic artery found. This was also clipped x 2 proximally, one distally and then divided. Gallbladder had pretty well already been dissected free from the early upper part and the gallbladder was easily freed from the liver bed without difficulty. There was oozing at the edge of the liver, this was controlled with cautery and then Surgicel was placed over this. Hemostasis was obtained. Surgicel was also placed over the area where the omentum over the fatty adhesions were taken down. There was no bleeding seen in this area. Again, irrigation was performed and any identified stone was removed, fairly confident that we removed all the stones that came out of the [facility] [address] [place] [address] OPERATIVE REPORT Name: YOKASTA BERNARD Room #: [address] [place] [address] Marce#: [id number] Admission: 10/20/21 Attend Phys: Sherman Bai MD Discharge: Date of : 51 Report #: [id number] gallbladder. The gallbladder was opened off the field and I can feel two stones in the cystic duct and I opened this area, two stones were stuck in this area. This caused her bile to be very sludgy and her pain. A drain was placed in the lateral part of the Morison's pouch. This was brought out through the lateral 5 mm trocar. A #19 Erick drain was used. This was sutured with a 2-0 silk suture. The fascia defect above the umbilicus was closed with [id number] 0 Vicryl x 2. Skin was closed with 5-0 PDS. Steri-Strips applied. Band-Aid was used for most of the trocar. The lateral drain site was secured with a folded 4 x 4 dressing and an Op-Site. The patient tolerated the procedure well and was taken to recovery room. <ELECTRONICALLY SIGNED> By: Sherman Bai MD 10/21/21 [id number] 1621 Sherman Bai MD /nt
[2021-10-21] MEDS ORDERED: HYDROCODON-ACE1 EAC7 PO (08:11)
[2021-10-21 08:34] VITALS: BP 121/38
--- NOTE | 2021-10-21 10:14 | NUR ---
PATIENT ALERT AND ORIENTED THIS MORNING. TOLERATED BREAKFAST. TEACHING DONE ON INSENTIVE SPIROMETER AND PT DEMONSTRATED UNDERSTANDING. WEANED OFF 02 WITHOUT DIFFICULTY. PLAN TO DC HOME AFTER LUNCH. PT HAS RIDE AT 1300. WILL SEND WITH SCRIPT AND FOLLOW UP INSTRUCTION.
[2021-10-21 11:24] VITALS: BP 121/38
--- NOTE | 2021-10-25 14:07 | PATH ---
[facility] [address] [place] [address] PATHOLOGY RPT PROCEDURE Name: YOKASTA BERNARD Room #: 436-P JIE Zheng#: [id number] Admission: 10/20/21 Date of : 51 Discharge: 10/21/21 Report #: [id number] Path Case #: [id number] [facility] Accession Number: [id number] . 01 Material submitted: . gallbladder - GALLBLADDER . 01 Clinical history: . LAPAROSCOPIC CHOLECYSTECTOMY WITH G CHOLELITHIASIS . 02 Diagnosis: Gallbladder, cholecystectomy: - Chronic cholecystitis with cholelithiasis. (ANK:galo; 10/22/2021) [facility] 10/22/2021 1054 Local . 02 Electronically signed: . Alicia Vázquez MD, Pathologist NPI- [id number] . 01 Gross description: . Fixative: Formalin Labeled: Gallbladder Specimen received: Previously disrupted gallbladder Dimensions: 11.4 x 2.1 x 0.5 cm Serosa: Light haas-santo to dark haas, with light haas-yellow, shaggy and cauterized adventatia Lymph node: None identified Mucosa: Dark haas and roughened Average wall thickness: 0.2 cm Calculi: Present, light green-yellow and friable and also found within neck Abnormalities: None identified . A1- Motor Operator body, fundus, and the cystic duct margin. ([facility]; 10/21/2021) [facility] 10/21/2021 1130 Local . 02 Pathologist provided ICD-10: K80.10 . 02 CPT . [id number] Specimen Comment: A courtesy copy of this report has been sent to [phone], [phone] Specimen Comment: [id number] [address] PATHOLOGY RPT PROCEDURE Name: YOKASTA BERNARD Room #: [address] [place] [address] Honorio Zheng#: [id number] Admission: 10/20/21 Date of : 51 Discharge: 10/21/21 Report #: [id number] Path Case #: [id number] Specimen Comment: Report sent to / DR RODAS Specimen Comment: A duplicate report has been generated due to demographic updates. Performed at: 01 [facility] [address], [place], [place] [id number] MD Jerad Shea MD Phone: [phone] Performed at: [address] [id number] MD Alicia Vázquez MD Phone: [phone]
== END 2021-10-21 13:38 | disposition home or self-care (01) ==
LOC: OR 10:53 → 4S 18:00 → OR 18:01 → 4S 10-21 13:38
PROVIDERS: ADMIT Surgery; ATTEND Surgery
DX: K80.40 Calculus of bile duct with cholecystitis, unspecified, without obstruction (principal); K82.8 Other specified diseases of gallbladder; Z88.7 Allergy status to serum and vaccine; Z91.018 Allergy to other foods; Z79.899 Other long term (current) drug therapy
CPT/HCPCS: 10102; 50010; 50101; 50411; 50555; 51489; 51687; 52265; 53307; 53310; 55245; 55317; 56462; 56525; 56526; 58574; 58710; 58910; 62110; 62900; 70005